=== PATIENT | female | born 1945 | race Two or more races ===

== ENCOUNTER 2017-10-01 09:01 | Outpatient (CLI) | payer OTHER ==
[~2017-10-01 09:01] MED LIST: AMARY; ASA81 MG PO; EVISTA60 MG PO; GLUCOPHAGE XR500 MG PO; LOTREL 5-10 MG1 CAP PO; MICRONASE1.25 MG PO; TENORMIN0.5 MG/ML IV
== END 2017-10-01 09:16 | disposition home or self-care (01) ==
LOC: LAB 09:01
DX: Z83.3 Family history of diabetes mellitus (principal); E78.00 Pure hypercholesterolemia, unspecified; E78.2 Mixed hyperlipidemia; I10 Essential (primary) hypertension; R78.89 Finding of other specified substances, not normally found in blood; Z12.11 Encounter for screening for malignant neoplasm of colon; E03.9 Hypothyroidism, unspecified

== ENCOUNTER → 2017-10-02 | Outpatient (CLI) | payer OTHER | END | disposition home or self-care (01) | LOC: LAB 14:48 | DX: E78.89 Other lipoprotein metabolism disorders (principal); E03.8 Other specified hypothyroidism; E78.2 Mixed hyperlipidemia; R74.0 Nonspecific elevation of levels of transaminase and lactic acid dehydrogenase [LDH]; R78.89 Finding of other specified substances, not normally found in blood; K90.89 Other intestinal malabsorption; I10 Essential (primary) hypertension; Z12.11 Encounter for screening for malignant neoplasm of colon; Z83.3 Family history of diabetes mellitus; E55.9 Vitamin D deficiency, unspecified ==

== ENCOUNTER 2017-12-02 07:31 | Outpatient (CLI) | payer OTHER | END 2017-12-02 07:35 | disposition home or self-care (01) | LOC: LAB 07:31 | DX: N39.0 Urinary tract infection, site not specified (principal) ==

== ENCOUNTER 2017-12-19 09:59 | Outpatient (CLI) | payer OTHER | END 2017-12-19 10:09 | disposition home or self-care (01) | LOC: LAB 09:59 | DX: N39.0 Urinary tract infection, site not specified (principal); R82.79 Other abnormal findings on microbiological examination of urine; D50.8 Other iron deficiency anemias ==

== ENCOUNTER 2017-12-19 10:53 | Outpatient (CLI) | payer OTHER | END 2017-12-19 11:00 | disposition home or self-care (01) | LOC: SONOGRAMA 10:53 | DX: R10.2 Pelvic and perineal pain (principal) ==

== ENCOUNTER → 2018-03-04 | Outpatient (CLI) | payer OTHER | END | disposition home or self-care (01) | LOC: LAB 09:10 | DX: E11.69 Type 2 diabetes mellitus with other specified complication (principal); E78.2 Mixed hyperlipidemia; R74.0 Nonspecific elevation of levels of transaminase and lactic acid dehydrogenase [LDH]; N39.0 Urinary tract infection, site not specified ==

== ENCOUNTER 2018-03-06 09:14 | Outpatient (CLI) | payer OTHER | END 2018-03-06 09:15 | disposition home or self-care (01) | LOC: LAB 09:14 | DX: E79.0 Hyperuricemia without signs of inflammatory arthritis and tophaceous disease (principal); N39.0 Urinary tract infection, site not specified ==

== ENCOUNTER 2018-05-31 08:05 | Outpatient (CLI) | payer OTHER | END 2018-05-31 08:10 | disposition home or self-care (01) | LOC: LAB 08:05 | DX: D64.89 Other specified anemias (principal); N39.0 Urinary tract infection, site not specified; R10.84 Generalized abdominal pain; E03.8 Other specified hypothyroidism; E11.9 Type 2 diabetes mellitus without complications ==

== ENCOUNTER 2018-08-01 08:48 | Outpatient (CLI) | payer OTHER | END 2018-08-01 15:00 | disposition home or self-care (01) | LOC: LAB 08:48 | DX: D64.89 Other specified anemias (principal); N39.0 Urinary tract infection, site not specified; R10.9 Unspecified abdominal pain; E03.8 Other specified hypothyroidism; E78.49 Other hyperlipidemia; E55.9 Vitamin D deficiency, unspecified; R80.8 Other proteinuria; E11.9 Type 2 diabetes mellitus without complications; R73.09 Other abnormal glucose ==

== ENCOUNTER 2018-08-22 07:52 | Outpatient (CLI) | payer OTHER | END 2018-08-22 08:00 | disposition home or self-care (01) | LOC: LAB 07:52 | DX: N39.0 Urinary tract infection, site not specified (principal) ==

== ENCOUNTER 2018-09-04 08:12 | Outpatient (CLI) | payer OTHER | END 2018-09-04 08:20 | disposition home or self-care (01) | LOC: LAB 08:12 | DX: E11.39 Type 2 diabetes mellitus with other diabetic ophthalmic complication (principal); I15.8 Other secondary hypertension; D68.32 Hemorrhagic disorder due to extrinsic circulating anticoagulants; D69.8 Other specified hemorrhagic conditions; I10 Essential (primary) hypertension ==

== ENCOUNTER 2018-10-28 07:28 | Outpatient (CLI) | payer OTHER | END 2018-10-28 07:35 | disposition home or self-care (01) | LOC: LAB 07:28 | DX: D64.89 Other specified anemias (principal); N39.0 Urinary tract infection, site not specified; R10.9 Unspecified abdominal pain; E03.8 Other specified hypothyroidism; E78.49 Other hyperlipidemia; E55.9 Vitamin D deficiency, unspecified ==

== ENCOUNTER 2019-05-15 09:31 | Outpatient (CLI) | payer OTHER | END 2019-05-15 09:35 | disposition home or self-care (01) | LOC: LAB 09:31 | DX: D64.89 Other specified anemias (principal); N39.0 Urinary tract infection, site not specified; R10.84 Generalized abdominal pain; E03.8 Other specified hypothyroidism; E78.49 Other hyperlipidemia; E11.9 Type 2 diabetes mellitus without complications ==

== ENCOUNTER 2019-07-02 11:00 | Outpatient (CLI) | payer OTHER | END 2019-07-02 11:06 | disposition home or self-care (01) | LOC: LAB 11:00 | DX: N39.0 Urinary tract infection, site not specified (principal); B96.29 Other Escherichia coli [E. coli] as the cause of diseases classified elsewhere ==

== ENCOUNTER 2019-07-10 10:36 | Outpatient (CLI) | payer OTHER | END 2019-07-10 10:38 | disposition home or self-care (01) | LOC: MAMO-SONO 10:36 | DX: N94.0 Mittelschmerz (principal); R10.2 Pelvic and perineal pain; N94.89 Other specified conditions associated with female genital organs and menstrual cycle; N63.10 Unspecified lump in the right breast, unspecified quadrant; N63.20 Unspecified lump in the left breast, unspecified quadrant; N64.59 Other signs and symptoms in breast; N64.89 Other specified disorders of breast; Z12.31 Encounter for screening mammogram for malignant neoplasm of breast ==

== ENCOUNTER 2019-08-17 05:18 | Day surgery (SDC) | payer OTHER ==
[~2019-08-17 05:18] MED LIST changes: +LASIX20 MG PO; +LIPITOR20 MG PO; +TOPROL XL25 M1 PO
== END 2019-08-17 15:10 | disposition home or self-care (01) ==
LOC: CIR.AMB 05:18 → EDSTATUS 10:00 → SURG 10:00 → CIR.AMB 11:15
DX: N84.0 Polyp of corpus uteri (principal)

== ENCOUNTER → 2020-01-08 10:15 | Outpatient (CLI) | payer OTHER | END | disposition home or self-care (01) | LOC: LAB 10:15 | PROVIDERS: ATTEND Internal Medicine | DX: E11.69 Type 2 diabetes mellitus with other specified complication (principal); E78.2 Mixed hyperlipidemia; E78.00 Pure hypercholesterolemia, unspecified; E87.8 Other disorders of electrolyte and fluid balance, not elsewhere classified; R74.0 Nonspecific elevation of levels of transaminase and lactic acid dehydrogenase [LDH]; D50.8 Other iron deficiency anemias; N39.0 Urinary tract infection, site not specified; E55.9 Vitamin D deficiency, unspecified; Z83.49 Family history of other endocrine, nutritional and metabolic diseases; R97.8 Other abnormal tumor markers; Z12.11 Encounter for screening for malignant neoplasm of colon ==

== ENCOUNTER 2020-01-15 10:46 | Outpatient (CLI) | payer OTHER | END 2020-01-15 10:48 | disposition home or self-care (01) | LOC: RAD 10:46 | PROVIDERS: ATTEND Internal Medicine | DX: R07.89 Other chest pain (principal) ==

== ENCOUNTER 2020-02-26 13:58 | Outpatient (CLI) | payer OTHER | END 2020-02-26 14:11 | disposition home or self-care (01) | LOC: NUCLEAR 13:58 | PROVIDERS: ATTEND Internal Medicine | DX: M89.8X0 Other specified disorders of bone, multiple sites (principal); M94.8X8 Other specified disorders of cartilage, other site; M81.0 Age-related osteoporosis without current pathological fracture ==

== ENCOUNTER → 2020-05-28 10:07 | Outpatient (CLI) | payer OTHER | END | disposition home or self-care (01) | LOC: LAB 10:07 | PROVIDERS: ATTEND Internal Medicine | DX: D50.8 Other iron deficiency anemias (principal); E78.00 Pure hypercholesterolemia, unspecified; Z83.49 Family history of other endocrine, nutritional and metabolic diseases; E87.8 Other disorders of electrolyte and fluid balance, not elsewhere classified ==

== ENCOUNTER 2020-06-22 08:01 | Outpatient (CLI) | payer OTHER | END 2020-06-22 08:11 | disposition home or self-care (01) | LOC: LAB 08:01 | PROVIDERS: ATTEND Internal Medicine | DX: D64.89 Other specified anemias (principal); N39.0 Urinary tract infection, site not specified; R10.84 Generalized abdominal pain; E03.8 Other specified hypothyroidism; E78.49 Other hyperlipidemia; R80.8 Other proteinuria; R73.09 Other abnormal glucose ==

== ENCOUNTER 2020-12-05 07:54 | Outpatient (CLI) | payer OTHER | END 2020-12-05 18:00 | disposition home or self-care (01) | LOC: LAB 07:54 | PROVIDERS: ATTEND Internal Medicine Cardiovascular Disease | DX: D64.89 Other specified anemias (principal); N39.0 Urinary tract infection, site not specified; R10.9 Unspecified abdominal pain; E03.8 Other specified hypothyroidism; E78.49 Other hyperlipidemia; E55.9 Vitamin D deficiency, unspecified; R80.8 Other proteinuria; E11.9 Type 2 diabetes mellitus without complications ==

== ENCOUNTER → 2021-02-22 13:33 | Outpatient (CLI) | payer OTHER | END | disposition home or self-care (01) | LOC: LAB 13:33 | PROVIDERS: ATTEND Internal Medicine | DX: N39.0 Urinary tract infection, site not specified (principal) ==

== ENCOUNTER 2022-03-30 09:36 | Outpatient (CLI) | payer OTHER | END 2022-03-30 09:42 | disposition home or self-care (01) | LOC: LAB 09:36 | PROVIDERS: ATTEND General Practice | DX: E11.69 Type 2 diabetes mellitus with other specified complication (principal); E78.2 Mixed hyperlipidemia; N18.2 Chronic kidney disease, stage 2 (mild) ==

== ENCOUNTER 2022-11-23 11:41 | Outpatient (CLI) | payer OTHER | END 2022-11-23 11:42 | disposition home or self-care (01) | LOC: LAB 11:41 | PROVIDERS: ATTEND General Practice | DX: E11.69 Type 2 diabetes mellitus with other specified complication (principal); E11.65 Type 2 diabetes mellitus with hyperglycemia; Z68.29 Body mass index [BMI] 29.0-29.9, adult; Z79.4 Long term (current) use of insulin; E11.40 Type 2 diabetes mellitus with diabetic neuropathy, unspecified; I25.10 Atherosclerotic heart disease of native coronary artery without angina pectoris; E78.2 Mixed hyperlipidemia; I25.2 Old myocardial infarction; E66.3 Overweight; E11.21 Type 2 diabetes mellitus with diabetic nephropathy; E11.22 Type 2 diabetes mellitus with diabetic chronic kidney disease; N18.2 Chronic kidney disease, stage 2 (mild) ==

== ENCOUNTER 2023-01-02 07:26 | Outpatient (CLI) | payer OTHER | END 2023-01-02 07:34 | disposition home or self-care (01) | LOC: LAB 07:26 | PROVIDERS: ATTEND General Practice | DX: E11.69 Type 2 diabetes mellitus with other specified complication (principal); E11.65 Type 2 diabetes mellitus with hyperglycemia; Z68.29 Body mass index [BMI] 29.0-29.9, adult; Z79.4 Long term (current) use of insulin; E11.40 Type 2 diabetes mellitus with diabetic neuropathy, unspecified; I25.10 Atherosclerotic heart disease of native coronary artery without angina pectoris; E78.2 Mixed hyperlipidemia; I25.2 Old myocardial infarction; E66.3 Overweight; E11.21 Type 2 diabetes mellitus with diabetic nephropathy; E11.22 Type 2 diabetes mellitus with diabetic chronic kidney disease; N18.2 Chronic kidney disease, stage 2 (mild) ==